=== PATIENT | female | born 1955 | race Caucasian/White ===

== ENCOUNTER → 2017-06-07 | Outpatient (CLI) | payer OTHER ==
[~2017-06-07] MED LIST: AGM500 PO; CALC500C3 PO; CHOL100027 PO; CITA40TA12 PO; CLC100X PO; FEXO1TAB46 PO; LISI-729 PO; MULTTAB58 PO; TRIA0.1C20 TD; VITAMIN B COMPLEX PO
--- NOTE | 2017-06-07 14:03 | DIAGNOSTIC IMAGING REPORT ---
R WRIST W/NAVICULAR MIN 3 VIEWS CLINICAL HISTORY: R WRIST PAIN COMPARISON: None. DISCUSSION: The bones are osteopenic. No acute fractures or dislocations are visualized. There are mild osteoarthritic changes. On the oblique lateral view, there is an equivocal spur/osteochondroma arising from what is likely the dorsal aspect of the navicular IMPRESSION: 1. Osteopenia 2. No acute fractures 3. Degenerative change Electronically signed by: Yovanny Herrera M.D. 06/07/2017 2:02 PM Dictated Date/Time: 06/07/2017 2:00 PM
== END | disposition home or self-care (01) ==
LOC: C.RAD1850 13:47
PROVIDERS: ATTEND Nurse Practitioner Family
DX: M25.531 Pain in right wrist (principal)

== ENCOUNTER → 2017-06-25 | Outpatient (CLI) | payer OTHER ==
--- NOTE | 2017-06-25 18:09 | DIAGNOSTIC IMAGING REPORT ---
MRI OF THE RIGHT WRIST WITHOUT CONTRAST CLINICAL HISTORY: Lateral right wrist pain. Work related injury. COMPARISON STUDY: Right wrist radiograph May 08, 2017. TECHNIQUE: Utilizing 1.5 Charlene magnet and dedicated coil, multiplanar, multiecho imaging of the right wrist was performed without intravenous or intra-articular contrast. FINDINGS: There is moderate to severe narrowing of the radiocarpal articulation with osteophytosis. This includes osteophytosis of the lateral aspect of the scaphoid. There is focal marked edema within the lateral distal scaphoid with mild adjacent soft tissue edema. No fracture is identified. Widening of the scapholunate interval is noted consistent with tear of the scapholunate ligament. Triangular fibrocartilage complex appears intact. There is no suspicious marrow replacement. There is moderate osteophytosis of the right first carpometacarpal joint. No mass or fluid collection is shown adjacent to the right wrist. Visualized portions of the flexor and extensor tendons are intact. IMPRESSION: 1. Focal marked edema within the lateral distal aspect of the scaphoid with mild adjacent soft tissue edema. This focus of marrow edema is likely within an osteophytic spur projecting off the scaphoid as shown on radiographs and could be due to osteoarthritis. However, an impaction/impingement injury could result in similar imaging findings. No fracture. 2. 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 3. Widening of the scapholunate interval consistent with age indeterminate tear of the scapholunate ligament. Electronically signed by: Beni Gan M.D. 06/25/2017 6:08 PM Dictated Date/Time: 06/25/2017 4:46 PM
== END | disposition home or self-care (01) ==
LOC: C.MRIBC 15:33
PROVIDERS: ATTEND Nurse Practitioner Family
DX: M25.531 Pain in right wrist (principal); Y99.0 Civilian activity done for income or pay